=== PATIENT | male | born 1955 | race Caucasian/White ===

== ENCOUNTER 2017-01-28 11:26 | Emergency (ER) | payer SELFPAY ==
[2017-01-28] MEDS ORDERED: Sodium Chloride 0.9% 10 ML Syringe FLUSH PRN (11:50)
[2017-01-28] MEDS ORDERED: LORazepam 2 MG/ML MDV IVPUSH ONE (11:51)
--- NOTE | 2017-01-28 11:54 | EDM.PDOC ---
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 States while driving became very anxious and started to have a panic attack. While driving up a hill he started developing numbness and tingling to his arms and states they did not work. Developed substernal chest discomfort that radiated into his head. Described the chest discomfort as a pressure sensation. States headache is described as sharp in nature. He has had no vision changes. After stopping the truck symptoms decreased. States he was able to drive 20 minutes until he had lard maker to call 911. During ambulance transport patient continued to have some chest pressure. It was rated 8 out of 10. They gave him 2 nitroglycerin with some relief. Patient states the nitroglycerin did not work but states calming measures improved the symptoms. He believes he had a panic attack. He does have a history of multiple TIAs. He takes a baby aspirin daily. Unclear why he has TIAs. He's had no permanent deficits. He's had no coronary disease although he is a diabetic and has high cholesterol. Currently the pain to 2 out of 10 substernal. Headache is mild in nature. No vision changes, nausea /vomiting, n/t to the extremities, weakness to extremities, or focal neurological deficits. He has no difficulty swallowing. He states he had a panic attack. Treatments PROPERTY COORDINATOR: Reports: Nitroglycerin Right Eye Pain Score (Numeric/FACES): 2 - Related Data Allergies Allergy/AdvReac Type Severity Reaction Status Date / Time No Known Allergies Allergy Verified 01/28/17 11:33 Home Meds: Home Meds Aspirin [Halfprin] 81 mg PO DAILY 01/28/17 [History] atorvaSTATin [Lipitor] 20 mg PO BEDTIME 01/28/17 [History] metFORMIN HCl [Metformin HCl ER] 1,000 mg PO DAILY 01/28/17 [History] Past Medical History Cardiovascular History: Reports: High Cholesterol Neurological History: Reports: CVA Endocrine/Metabolic History: Reports: Diabetes, Type II Social & Family History - Family History Family Medical History: Noncontributory - Tobacco Use Smoking Status *Q: Never Smoker - Caffeine Use Caffeine Use: Reports: None - Recreational Drug Use Recreational Drug Use: No ED ROS GENERAL - Review of Systems Review Of Systems: ROS reveals no pertinent complaints other than HPI. ED EXAM, GENERAL - Physical Exam Exam: See Below Exam Limited By: No Limitations General Appearance: Alert, WD/WN, No Apparent Distress Eye Exam: Bilateral Eye: EOMI, Nystagmus (None noted), PERRL Ears: Hearing Grossly Normal Nose: Normal Inspection Throat/Mouth: Normal Inspection, Normal Oropharynx, Normal Voice, No Airway Compromise Head: Atraumatic, Normocephalic Neck: Normal Inspection, Supple, Non-Tender, Full Range of Motion Respiratory/Chest: No Respiratory Distress, Lungs Clear, Normal Breath Sounds, No Accessory Muscle Use, Chest Non-Tender Cardiovascular: Normal Peripheral Pulses, Regular Rate, Rhythm Peripheral Pulses: 2+: Radial (L), Radial (R) GI/Abdominal: Normal Bowel Sounds, Soft, Non-Tender, No Organomegaly, No Distention Back Exam: Normal Inspection, Full Range of Motion Extremities: Normal Inspection, Normal Range of Motion, Non-Tender, No Pedal Edema, Normal Capillary Refill Neurological: Alert, Oriented, CN II-XII Intact, Normal Cognition, No Motor/ Sensory Deficits, Other (Cerebellar function intact including finger to nose, rapid alternating movements. No weakness or discrepancies to the upper or lower extremities. No sensorimotor deficits. No slurred speech and/or pronator drift.) Psychiatric: Normal Affect, Normal Mood Skin Exam: Warm, Dry, Intact, Normal Color, No Rash Course - Vital Signs Last Recorded V/S: Last Vital Signs Temp 97.4 F 01/28/17 11:29 Pulse 56 L 01/28/17 11:29 Resp 17 01/28/17 11:29 BP 135/75 01/28/17 11:29 Pulse Ox 98 01/28/17 11:29 - Orders/Labs/Meds Orders: Active Orders 24 hr Category Date Time Status Peripheral IV Care [RC] . DIRECTED Care 01/28/17 11:50 Active CXR [Chest 1V Frontal] [CR] Stat Exams 01/28/17 11:51 Taken Peripheral IV Insertion Adult [OM.PC] Stat Oth 01/28/17 11:50 Ordered Labs: Laboratory Tests 01/28/17 01/28/17 01/28/17 Range/Units 12:14 12:14 12:14 WBC 7.51 (4.23-9.07) K/mm3 RBC 4.61 L (4.63-6.08) M/mm3 Hgb 13.2 L (13.7-17.5) gm/L Hct 38.4 L (40.1-51.0) % MCV 83.3 (79.0-92.2) fl MCH 28.6 (25.7-32.2) pg MCHC 34.4 (32.2-35.5) g/dl RDW Std Deviation 38.2 (35.1-43.9) fL Plt Count 247 (163-337) K/mm3 MPV 9.5 (9.4-12.3) fl Neut % (Auto) 56.8 (34.0-67.9) % Lymph % (Auto) 31.6 (21.8-53.1) % [place] % (Auto) 10.4 (5.3-12.2) % Eos % (Auto) 0.8 (0.8-7.0) Baso % (Auto) 0.3 (0.1-1.2) % Neut # (Auto) 4.27 (1.78-5.38) K/mm3 Lymph # (Auto) 2.37 (1.32-3.57) K/mm3 [place] # (Auto) 0.78 (0.30-0.82) K/mm3 Eos # (Auto) 0.06 (0.04-0.54) K/mm3 Baso # (Auto) 0.02 (0.01-0.08) K/mm3 PT 9.9 (8.0-13.0) SECONDS INR 0.91 APTT 25 (22-36) SECONDS Sodium 140 (136-145) mEq/L Potassium 3.7 (3.5-5.1) mEq/L Chloride 105 (98-107) mEq/L Carbon Dioxide 21 (21-32) mEq/L Anion Gap 17.7 H (5-15) BUN 24 H (7-18) mg/dL Creatinine 0.8 (0.7-1.3) mg/dL Est Cr Clr Drug Dosing 88.36 mL/min Estimated GFR (MDRD) > 60 (>60) mL/min BUN/Creatinine Ratio 30.0 H (14-18) Glucose 144 H (80-115) mg/dL Calcium 9.2 (8.5-10.1) mg/dL Total Bilirubin 0.3 (0.2-1.0) mg/dL AST 17 (15-37) U/L ALT 39 (16-63) U/L Alkaline Phosphatase 68 (46-116) U/L Troponin I < 0.017 (0.00-0.056) ng/mL C-Reactive Protein < 0.2 (<1.0) mg/dL Total Protein 7.3 (6.4-8.2) g/dl Albumin 4.0 (3.4-5.0) g/dl Globulin 3.3 gm/dL Albumin/Globulin Ratio 1.2 (1-2) TSH 3rd Generation 0.997 (0.358-3.74) uIU/mL Urine Color (Yellow) Urine Appearance (Clear) Urine pH (5.0-8.0) Ur Specific [place] (1.005-1.030) Urine Protein (Negative) Urine Glucose (UA) (Negative) Urine Ketones (Negative) Urine Occult Blood (Negative) Urine Nitrite (Negative) Urine Bilirubin (Negative) Urine Urobilinogen (0.2-1.0) Ur Leukocyte Esterase (Negative) Urine RBC (0-5) /hpf Urine WBC (0-5) /hpf Ur Epithelial Cells (0-5) /hpf Urine Bacteria (FEW) /hpf Urine Mucus (FEW) /hpf Urine Opiates Screen (NEGATIVE) Ur Buprenorphine Scrn (NEGATIVE) Ur Oxycodone Screen (NEGATIVE) Urine Methadone Screen (NEGATIVE) Ur Propoxyphene Screen (NEGATIVE) Ur Barbiturates Screen (NEGATIVE) Ur Tricyclics Screen (NEGATIVE) Ur Phencyclidine Scrn (NEGATIVE) Ur Amphetamine Screen (NEGATIVE) U Methamphetamines Scrn (NEGATIVE) U Benzodiazepines Scrn (NEGATIVE) U Cocaine Metab Screen (NEGATIVE) U Marijuana (THC) Screen (NEGATIVE) Ethyl Alcohol 0.00 (0.00) gm% 01/28/17 01/28/17 01/28/17 Range/Units 13:50 14:10 14:10 WBC (4.23-9.07) K/mm3 RBC (4.63-6.08) M/mm3 Hgb (13.7-17.5) gm/L Hct (40.1-51.0) % MCV (79.0-92.2) fl MCH (25.7-32.2) pg MCHC (32.2-35.5) g/dl RDW Std Deviation (35.1-43.9) fL Plt Count (163-337) K/mm3 MPV (9.4-12.3) fl Neut % (Auto) (34.0-67.9) % Lymph % (Auto) (21.8-53.1) % [place] % (Auto) (5.3-12.2) % Eos % (Auto) (0.8-7.0) Baso % (Auto) (0.1-1.2) % Neut # (Auto) (1.78-5.38) K/mm3 Lymph # (Auto) (1.32-3.57) K/mm3 [place] # (Auto) (0.30-0.82) K/mm3 Eos # (Auto) (0.04-0.54) K/mm3 Baso # (Auto) (0.01-0.08) K/mm3 PT (8.0-13.0) SECONDS INR APTT (22-36) SECONDS Sodium (136-145) mEq/L Potassium (3.5-5.1) mEq/L Chloride (98-107) mEq/L Carbon Dioxide (21-32) mEq/L Anion Gap (5-15) BUN (7-18) mg/dL Creatinine (0.7-1.3) mg/dL Est Cr Clr Drug Dosing mL/min Estimated GFR (MDRD) (>60) mL/min BUN/Creatinine Ratio (14-18) Glucose (80-115) mg/dL Calcium (8.5-10.1) mg/dL Total Bilirubin (0.2-1.0) mg/dL AST (15-37) U/L ALT (16-63) U/L Alkaline Phosphatase (46-116) U/L Troponin I < 0.017 (0.00-0.056) ng/mL C-Reactive Protein (<1.0) mg/dL Total Protein (6.4-8.2) g/dl Albumin (3.4-5.0) g/dl Globulin gm/dL Albumin/Globulin Ratio (1-2) TSH 3rd Generation (0.358-3.74) uIU/mL Urine Color Yellow (Yellow) Urine Appearance Clear (Clear) Urine pH 6.0 (5.0-8.0) Ur Specific [place] 1.025 (1.005-1.030) Urine Protein Negative (Negative) Urine Glucose (UA) Trace H (Negative) Urine Ketones Negative (Negative) Urine Occult Blood Negative (Negative) Urine Nitrite Negative (Negative) Urine Bilirubin Negative (Negative) Urine Urobilinogen 0.2 (0.2-1.0) Ur Leukocyte Esterase Negative (Negative) Urine RBC 0-5 (0-5) /hpf Urine WBC 0-5 (0-5) /hpf Ur Epithelial Cells 0-5 (0-5) /hpf Urine Bacteria Rare (FEW) /hpf Urine Mucus Few (FEW) /hpf Urine Opiates Screen Negative (NEGATIVE) Ur Buprenorphine Scrn Negative (NEGATIVE) Ur Oxycodone Screen Negative (NEGATIVE) Urine Methadone Screen Negative (NEGATIVE) Ur Propoxyphene Screen Negative (NEGATIVE) Ur Barbiturates Screen Negative (NEGATIVE) Ur Tricyclics Screen Negative (NEGATIVE) Ur Phencyclidine Scrn Negative (NEGATIVE) Ur Amphetamine Screen Negative (NEGATIVE) U Methamphetamines Scrn Negative (NEGATIVE) U Benzodiazepines Scrn Negative (NEGATIVE) U Cocaine Metab Screen Negative (NEGATIVE) U Marijuana (THC) Screen Negative (NEGATIVE) Ethyl Alcohol (0.00) gm% Meds: Medications Discontinued Medications Generic Name Dose Route Start Last Admin Trade Name Freq PRN Reason Stop Dose Admin Lorazepam 0.5 mg 01/28/17 11:51 01/28/17 12:28 Ativan IVPUSH 01/28/17 11:52 0.5 mg ONETIME ONE Administration Sodium Chloride 10 ml 01/28/17 11:50 01/28/17 12:28 Saline Flush FLUSH 10 ml ASDIRECTED PRN Administration Keep Vein Open - Re-Assessments/Exams Free Text/Narrative Re-Assessment/Exam: Upon admission to the ED patient's chest discomfort was a 2 out of 10. Subsiding. Again nitroglycerin did not relieve this pain but calming measures did. IV established with Ativan 0.5 mg IVP. Initial labs and studies include CBC, chem 14, troponin, CRP, serum EtOH, coag studies, urine drug tox, TSH, UA, chest x-ray one view, and had CT without contrast. EKG sinus rhythm at rate of 59, early R-wave transition, borderline criteria for LVH, QT mildly prolonged. Chest x-ray revealed no acute abnormalities. Final interpretation is pending. CT of the head impression: Sinus findings as noted above. No acute intracranial abnormality is identified on noncontrast head CT study. Labs reviewed: CBC essentially normal. Coag studies normal. Chemistry panel revealed sodium 140, potassium 3.7, AG 17.7, creatinine 0.8, glucose 144, troponin less than 0.017, CRP less than 0.2, TSH 0.997. Toxicology negative for alcohol. UA and urine drug tox have not been collected. 01/28/17 13:40 Reassessment, patient sleeping comfortably. When awoken asked if he has any discomfort to which he states no. Headache and chest discomfort has resolved. Will order a second troponin. If negative patient will be discharged home. 01/28/17 14:58 Seconds troponin was negative. Patient is pain-free. He is resting comfortably in bed. Will discharge patient home with instructions as documented. Patient is arranging a ride. Departure - Departure Time of Disposition: 14:58 Disposition: Home, Self-Care 01 Condition: Good (Panic attack) Clinical Impression: Panic attack, Atypical chest pain Headache Qualifiers: Headache type: unspecified Headache chronicity pattern: unspecified pattern Intractability: not intractable Qualified Code(s): R51 - Headache Instructions: Panic Attacks, [id number] Referrals: PCP,None [Primary Care Provider] - Forms: ED Department Discharge, ED Return to Work/School Form Additional Instructions: As discussed believe etiology complaint is related to a panic attack causing the numbness to your arms, discomfort, and headache. Symptoms resolved with admission to the ED. Labs and studies essentially were normal with no concerning findings. Please do not drive today since receiving a sedative medication the ED. Follow-up with her PCP here locally for reevaluation in the next week. Return to the ED for any new or worsening symptoms. - My Orders Last 24 Hours: My Active Orders 01/28/17 11:50 Peripheral IV Care [RC] . DIRECTED Peripheral IV Insertion Adult [OM.PC] Stat 01/28/17 11:51 CXR [Chest 1V Frontal] [CR] Stat - Assessment/Plan Last 24 Hours: My Active Orders 01/28/17 11:50 Peripheral IV Care [RC] . DIRECTED Peripheral IV Insertion Adult [OM.PC] Stat 01/28/17 11:51 CXR [Chest 1V Frontal] [CR] Stat
--- NOTE | 2017-01-28 13:04 | CT ---
Head CT Technique: Multiple axial sections through the brain were obtained. Intravenous contrast was not utilized. Comparison: No previous study. Findings: Ventricles along with basal cisterns and sulci over the convexities are within normal limits for the patient's age. No abnormal parenchymal densities are seen. No evidence of intracranial hemorrhage. No midline shift or mass effect is seen. Soft tissue abnormality is noted within the left maxillary sinus most likely representing large retention cyst. No acute calvarial abnormality is seen. Impression: 1. Sinus finding as noted above. 2. No acute intracranial abnormality is identified on noncontrast head CT study. Diagnostic code #2
--- NOTE | 2017-01-29 08:16 | CR ---
Chest: Portable view of the chest was obtained. Comparison: No previous study. Heart size is normal. Mild tortuosity of the thoracic aorta is seen. Lungs are clear. Bony structures are grossly intact. Impression: 1. Nothing acute is seen on portable chest x-ray. Diagnostic code #1
== END 2017-01-28 15:30 | disposition home or self-care (01) ==
LOC: JD.ED 11:26 → MERGE 11:26 → JD.ED 15:30
DX: F41.0 Panic disorder [episodic paroxysmal anxiety] (principal); R07.89 Other chest pain; R51 Headache; E78.00 Pure hypercholesterolemia, unspecified; E11.9 Type 2 diabetes mellitus without complications; Z86.73 Personal history of transient ischemic attack (TIA), and cerebral infarction without residual deficits; Z79.84 Long term (current) use of oral hypoglycemic drugs; Z79.82 Long term (current) use of aspirin
CPT/HCPCS: 36415; 70450; 71010; 80053; 80306; 81001; 84443; 84484; 85025; 85610; 85730; 86140; 96374; 99285; G0480; J2060; J7050